=== PATIENT | male | born 1975 | race Caucasian/White ===

== ENCOUNTER 2017-08-27 12:30 | Emergency (ER) | payer BC ==
[2017-08-27 12:38] VITALS: TEMP 97.7; BMI 29.8
--- NOTE | 2017-08-27 13:05 | PDOC ---
History of Present Illness - General Chief Complaint: Back Pain Stated Complaint: BACK PAIN Time Seen by Provider: 08/27/17 13:05 - History of Present Illness Initial Comments: 08/27/17 13:13 Mr. Kiser is a 42 yo male with pmh of prior intervertebral disc problems (unable to specify) who presents with a 2 day history of severe lower back pain. He reports the pain is in his lower back bilaterally and shoots all the way down the back of his left leg. He doesn't think he can walk right now due to this pain. Has tried hot pads and over the counter meds at home without success. Denies chest pain, shortness of breath, headache and dizziness. Denies fever, chills, nausea, vomit, diarrhea and constipation. Denies dysuria, frequency, urgency and hematuria. Past History - Past Medical History Allergies/Adverse Reactions: Allergies Allergy/AdvReac Type Severity Reaction Status Date / Time No Known Allergies Allergy Verified 08/27/17 12:33 Home Medications: Ambulatory Orders Methylprednisolone [Medrol Dose Pratik] 4 mg PO ASDIR #21 tablet 08/27/17 Tramadol HCl 50 mg PO QID #20 tablet MDD 200 08/27/17 CVA: No COPD: No DVT: No - Immunization History Immunization Up to Date: Yes - Suicide/Smoking/Psychosocial Hx Smoking History: Current every day smoker Have you smoked in the past 12 months: No Number of Cigarettes Smoked Daily: 4 Information on smoking cessation initiated: No Hx Alcohol Use: No Drug/Substance Use Hx: No Substance Use Type: None Review of Systems - Review of Systems Comments:: 08/27/17 13:39 GENERAL/CONSTITUTIONAL: No fever or chills. No weakness. HEAD, EYES, EARS, NOSE AND THROAT: No change in vision. No ear pain or discharge. No sore throat. CARDIOVASCULAR: No chest pain or shortness of breath RESPIRATORY: No cough, wheezing, or hemoptysis. GASTROINTESTINAL: No nausea, vomiting, diarrhea or constipation. GENITOURINARY: No dysuria, frequency, or change in urination. MUSCULOSKELETAL: +Back pain as described. Minor parasthesias noted in same locations as well. SKIN: No rash NEUROLOGIC: No headache, vertigo, loss of consciousness, or change in strength/ sensation. ENDOCRINE: No increased thirst. No abnormal weight change HEMATOLOGIC/LYMPHATIC: No anemia, easy bleeding, or history of blood clots. ALLERGIC/IMMUNOLOGIC: No hives or skin allergy. 08/27/17 13:42 *Physical Exam - Vital Signs Last Vital Signs Temp Pulse Resp BP Pulse Ox 97.7 F 77 16 153/93 97 08/27/17 12:34 08/27/17 12:34 08/27/17 12:34 08/27/17 12:34 08/27/17 12:34 - Physical Exam Comments: 08/27/17 13:40 GENERAL: +appears acutely uncomfortable and lying on Right side. Awake, alert, and fully oriented. HEAD: No signs of trauma, normocephalic, atraumatic EYES: PERRLA, EOMI, sclera anicteric, conjunctiva clear ENT: Auricles normal inspection, hearing grossly normal, nares patent, oropharynx clear without exudates. Moist mucosa NECK: Normal ROM, supple, no lymphadenopathy, JVD, or masses LUNGS: No distress, speaks full sentences, clear to auscultation bilaterally HEART: Regular rate and rhythm, normal S1 and S2, no murmurs, rubs or gallops, peripheral pulses normal and equal bilaterally. ABDOMEN: Soft, nontender, normoactive bowel sounds. No guarding, no rebound. No masses EXTREMITIES: +Pain to palpation at lower back bilaterally. Unable to fully cooperate with exam due to pain. Normal inspection, Normal range of motion, no edema. No clubbing or cyanosis. NEUROLOGICAL: Cranial nerves II through XII grossly intact. Normal speech, no focal sensorimotor deficits SKIN: Warm, Dry, normal turgor, no rashes or lesions noted. Medical Decision Making - Medical Decision Making 08/30/17 20:54 Patient presents with acute back pain for known issue. No symptoms concerning for cord compression such as saddle anesthesia or loss of bowel/bladder tone. Patient needs outpatient follow-up for further care. *DC/Admit/Observation/Transfer Diagnosis at time of Disposition: Low back pain Qualifiers: Chronicity: chronic Back pain laterality: left Sciatica presence: with sciatica Sciatica laterality: sciatica of left side Qualified Code(s): M54.42 - Lumbago with sciatica, left side - Discharge Dispostion Disposition: HOME - Prescriptions Prescriptions: Methylprednisolone [Medrol Dose Pratik] 4 mg PO ASDIR #21 tablet Tramadol HCl 50 mg PO QID #20 tablet MDD 200 - Referrals Referrals: Micah Castillo MD [Staff Physician] - Vimal Andrade MD [Primary Care Provider] - - Patient Instructions Printed Discharge Instructions: Low Back Pain Additional Instructions: Medrol Dosepak and tramadol as prescribed. Warm compresses 20 minutes on 20 minutes off to lower back 5 times a day. Rest for the next 3 days. Follow-up with your doctor and with orthopedics this week. Return to the emergency department for any weakness numbness bowel or bladder incontinence severe worsening symptoms or for any concerns. - Post Discharge Activity Forms/Work/School Notes: Back to Work
--- NOTE | 2017-08-27 13:22 | PDOC ---
Attending Attestation - HPI HPI: 08/27/17 14:50 The patient is a 42 year old male with no significant past medical history who presents to the ED with complaints of lower back pain since yesterday. The patient reports a sudden onset of sharp left sided lower back pain radiating down his left leg. He also reports left leg numbness associated with present symptoms. Patient reports similar symptoms in the past and was diagnosed with damage to his disc. Denies fever or chills. Denies nausea or vomiting. Denies neck pain. Denies chest pain or shortness of breath. ROS: A complete review of 10 out of 10 review of systems is taken and is negative apart from what is previously mentioned below and in the HPI. - Physicial Exam PE: 08/27/17 14:50 Vitals: Triage Vital signs reviewed General Appearance: no acute distress, well nourished well developed Back: + Midline tenderness, good strength, good sensation. Abdomen: Soft, nondistended, normal bowel sounds, nontender to palpation Extremities: Full range of motion to all extremities, no cyanosis, clubbing, or edema Skin: Warm and dry, no rashes or lesions, no rash, no petechiae Neuro: AOX3; Cranial Nerves 2-12 grossly intact, Strength intact to all extremities, Sensation intact to all extremities, gait normal Psych: Normal mood, normal affect - Medical Decision Making 08/27/17 14:50 Documentation prepared by Elmo Ramos, acting as caregivers non medical for Ismael Bond MD <Elmo Ramos - Last Filed: 08/27/17 14:50> - Resident Resident Name: Jc Dick - ED Attending Attestation I have performed the following: I have examined & evaluated the patient, The case was reviewed & discussed with the resident, I agree w/resident's findings & plan, Exceptions are as noted - Medical Decision Making 08/27/17 18:09 Patient with long-standing history of herniated disks. Presents with his estimation of chronic back pain No weakness no numbness no bowel or bladder incontinence status post pain medications patient feels much better. Patient provided with orthopedic follow-up Medrol Dosepak and tramadol for pain he'll return to the emergency department for any severe worsening symptoms any weakness numbness any bowel or bladder incontinence <Ismael Bond - Last Filed: 08/27/17 18:10> Discharge Disposition <Elmo Ramos - Last Filed: 08/27/17 14:50> - Discharge Dispostion Admit: No <Ismael Bond - Last Filed: 08/27/17 18:10> - Diagnosis Low back pain Qualifiers: Chronicity: chronic Back pain laterality: left Sciatica presence: with sciatica Sciatica laterality: sciatica of left side Qualified Code(s): M54.42 - Lumbago with sciatica, left side - Discharge Dispostion Disposition: HOME - Prescriptions Prescriptions: Methylprednisolone [Medrol Dose Pratik] 4 mg PO ASDIR #21 tablet Tramadol HCl 50 mg PO QID #20 tablet MDD 200 - Referrals Referrals: Vimal Andrade MD [Primary Care Provider] - Micah Castillo MD [Staff Physician] - - Patient Instructions Printed Discharge Instructions: Low Back Pain Additional Instructions: Medrol Dosepak and tramadol as prescribed. Warm compresses 20 minutes on 20 minutes off to lower back 5 times a day. Rest for the next 3 days. Follow-up with your doctor and with orthopedics this week. Return to the emergency department for any weakness numbness bowel or bladder incontinence severe worsening symptoms or for any concerns. - Post Discharge Activity Work/School Note: Back to Work
[2017-08-27] MEDS ORDERED: diazePAM 5 MG TABLET PO ONE (13:34)
[2017-08-27] MEDS ORDERED: DEXAMETHASONE 4 MG TABLET (FP) PO ONE (13:45)
[2017-08-27] MEDS ORDERED: DEXAMETHASONE SOD PHOSPHATE 4 MG/1 ML VIAL ONE (13:54)
[2017-08-27] MEDS ORDERED: diazePAM 5 MG TABLET ONE (13:55)
[2017-08-27] MEDS ORDERED: HYDROmorphone HCL CARPU-JECT 1 MG/1 ML DISP.SYRIN IM ONE (14:48)
[2017-08-27] MEDS ORDERED: HYDROmorphone HCL CARPU-JECT 1 MG/1 ML DISP.SYRIN ONE (14:55)
[2017-08-27 16:09] VITALS: BP 146/86; PULSE 67
== END 2017-08-27 16:10 | disposition home or self-care (01) ==
LOC: JER 12:30
PROC: 3E023NZ Introduction of Analgesics, Hypnotics, Sedatives into Muscle, Percutaneous Approach (ICD-10-PCS; principal; 2017-08-27)
DX: M54.42 Lumbago with sciatica, left side (principal)
CPT/HCPCS: 72100-TC; 99282-25

== ENCOUNTER 2017-09-04 17:17 | Emergency (ER) | payer BC, OTHER ==
--- NOTE | 2017-09-04 17:41 | PDOC ---
Rapid Medical Evaluation Time Seen by Provider: 09/04/17 17:30 Medical Evaluation: Allergies Allergy/AdvReac Type Severity Reaction Status Date / Time No Known Allergies Allergy Verified 08/27/17 12:33 09/04/17 17:30 I have performed a brief in person evaluation of this patient. The patient presents with chief complaint of : back pain has improved needs to go back to work tomorrow . Pertinent PE findings: none I have ordered the following: none The patient will proceed to the ER for further evaluation.
[2017-09-04 17:47] VITALS: BP 142/95; PULSE 83; TEMP 98.6; BMI 29.8
--- NOTE | 2017-09-04 17:59 | PDOC ---
History of Present Illness - General Chief Complaint: Back Pain Stated Complaint: REVISIT Time Seen by Provider: 09/04/17 17:30 History Source: Patient Exam Limitations: No Limitations - History of Present Illness Initial Comments: 09/04/17 17:54 42 yr male presents to ER for evaluation of back pain that has resolved and would like to return to work. Pt has no pain no leg pain, no numbness or tingling, nv intact. Past History - Past Medical History Allergies/Adverse Reactions: Allergies Allergy/AdvReac Type Severity Reaction Status Date / Time No Known Allergies Allergy Verified 09/04/17 17:42 Home Medications: Ambulatory Orders Methylprednisolone [Medrol Dose Pratik] 4 mg PO ASDIR #21 tablet 08/27/17 Tramadol HCl 50 mg PO QID #20 tablet MDD 200 08/27/17 CVA: No COPD: No DVT: No Other medical history: DENIES. - Immunization History Immunization Up to Date: Yes - Suicide/Smoking/Psychosocial Hx Smoking History: Current every day smoker Have you smoked in the past 12 months: No Number of Cigarettes Smoked Daily: 4 Information on smoking cessation initiated: No Hx Alcohol Use: No Drug/Substance Use Hx: No Substance Use Type: None Review of Systems - Review of Systems Able to Perform ROS?: Yes Is the patient limited Kyrgyz proficient: No Constitutional: No: Symptoms Reported HEENTM: No: Symptoms Reported Respiratory: No: Symptoms reported Cardiac (ROS): No: Symptoms Reported ABD/GI: No: Symptoms Reported : No: Symptoms Reported Musculoskeletal: No: Symptoms Reported Integumentary: No: Symptoms Reported *Physical Exam - Vital Signs Last Vital Signs Temp Pulse Resp BP Pulse Ox 98.6 F 83 19 142/95 97 09/04/17 17:42 09/04/17 17:42 09/04/17 17:42 09/04/17 17:42 09/04/17 17:42 - Physical Exam General Appearance: Yes: Nourished, Appropriately Dressed HEENT: positive: EOMI, [place] Neck: negative: Tender Respiratory/Chest: positive: Lungs Clear, Normal Breath Sounds Cardiovascular: positive: Regular Rhythm, Regular Rate Musculoskeletal: positive: Normal Inspection. negative: CVA Tenderness, CVA Tenderness (R), CVA Tenderness (L), Decreased Range of Motion, Muscle Spasm, Vertebral Tenderness Extremity: positive: Normal Capillary Refill, Normal Inspection, Normal Range of Motion Integumentary: positive: Normal Color, Dry, Warm Neurologic: positive: Fully Oriented, Alert, Normal Mood/Affect, Normal Response , Motor Strength 5/5 Medical Decision Making - Medical Decision Making 09/04/17 17:56 cc: low back pain that has resolved on arrival pt was seen in ER last week for low back pain injury at work pt took the prescribed medciation and has no pain now, no leg pain or numbness pt is ambulatory with steady gait no distress pt would like to go back to work with no restrictions tomorrow pt works as a mainteneance worker *DC/Admit/Observation/Transfer Diagnosis at time of Disposition: Follow up - Discharge Dispostion Disposition: HOME Condition at time of disposition: Improved - Referrals Referrals: Franco Puentes MD [Staff Physician] - - Patient Instructions Additional Instructions: follow wtih the orthopedist if any back pain re-appears - Post Discharge Activity Forms/Work/School Notes: Back to Work
== END 2017-09-04 18:20 | disposition home or self-care (01) ==
LOC: JERFT 17:17
DX: Z09 Encounter for follow-up examination after completed treatment for conditions other than malignant neoplasm (principal)
CPT/HCPCS: 99281-25